=== PATIENT | male | born 1995 | race African-American/Black ===

== ENCOUNTER 2017-01-07 07:20 | Emergency (ER) | payer OTHER ==
--- NOTE | 2017-01-07 07:32 | PDOC ---
History of Present Illness <Jennifer Goyal - Last Filed: 01/07/17 07:32> <Eunice Quintanilla - Last Filed: 01/07/17 07:49> - General Chief Complaint: Pain Stated Complaint: RIGHT ANKLE PAIN Time Seen by Provider: 01/07/17 07:31 Past History - Past Medical History Diabetes: Yes Dialysis: Yes ( SAT) HTN: Yes - Psycho/Social/Smoking Cessation Hx Suicidal Ideation: No Smoking History: Never smoked Information on smoking cessation initiated: No <Jennifer Goyal - Last Filed: 01/07/17 07:32> <Eunice Quintanilla - Last Filed: 01/07/17 07:49> - Past Medical History Allergies/Adverse Reactions: Allergies Allergy/AdvReac Type Severity Reaction Status Date / Time No Known Allergies Allergy Verified 01/07/17 07:30 *Physical Exam - Vital Signs Last Vital Signs Temp Pulse Resp BP Pulse Ox 98.1 F 85 18 160/57 99 01/07/17 07:26 01/07/17 07:26 01/07/17 07:26 01/07/17 07:26 01/07/17 07:26 <Jennifer Goyal - Last Filed: 01/07/17 07:32> - Vital Signs Last Vital Signs Temp Pulse Resp BP Pulse Ox 98.1 F 85 18 160/57 99 01/07/17 07:26 01/07/17 07:26 01/07/17 07:26 01/07/17 07:26 01/07/17 07:26 <Eunice Quintanilla - Last Filed: 01/07/17 07:49>
[2017-01-07 07:45] VITALS: TEMP 98.1
--- NOTE | 2017-01-07 07:54 | PDOC ---
History of Present Illness - General History Source: Patient Exam Limitations: No Limitations - History of Present Illness Initial Comments: CHIEF COMPLAINT: 21 y/o afebrile male with no significant PMH c/o right ankle pain s/p sports injury yesterday. HISTORY OF PRESENT ILLNESS: The patient states he was playing basketball yesterday when he twisted his right ankle in an eversion fashion. He states he was not able to keep playing, has been limping and in pain ever since. He denies numbness/tingling, swelling, redness. The patient was given a percocet by his mother this morning for pain. Vital signs on arrival are within normal limits. REVIEW OF SYSTEMS: GENERAL/CONSTITUTIONAL: No fever/chills. No weakness. No weight change. MUSCULOSKELETAL: +right ankle pain. No neck or back pain. SKIN: No rash or easy bruising. NEUROLOGIC: No headache, vertigo, loss of consciousness, or loss of sensation. VITAL_SIGNS: within normal limits GENERAL_APPEARANCE: alert, cooperative, mild obvious discomfort with ambulation. The patient is ambulatory with limp MENTAL_STATUS: speech clear, oriented X 3, responds appropriately to questions. NEURO: motor intact and sensory intact in injured extremity. EXTREMITIES: 2+ dorsalis pedis pulse in right foot. Very minimal edema to right lateral malleolus with TTP in that area. No erythema, warmth, deformities , crepitus. Full flexion, extension, eversion and inversion of affected foot. SKIN: warm, dry, good color. <Becky Adames - Last Filed: 01/07/17 09:37> <Jennifer Goyal - Last Filed: 01/09/17 14:13> - General Chief Complaint: Pain Stated Complaint: RIGHT ANKLE PAIN Time Seen by Provider: 01/07/17 07:31 Past History - Past Medical History Diabetes: Yes Dialysis: Yes (Sat) HTN: Yes - Psycho/Social/Smoking Cessation Hx Suicidal Ideation: No Smoking History: Never smoked Information on smoking cessation initiated: No <Becky Adames - Last Filed: 01/07/17 09:37> <Jennifer Goyal - Last Filed: 01/09/17 14:13> - Past Medical History Allergies/Adverse Reactions: Allergies Allergy/AdvReac Type Severity Reaction Status Date / Time No Known Allergies Allergy Verified 01/07/17 07:30 Home Medications: Ambulatory Orders NK [No Known Home Medication] 01/07/17 *Physical Exam - Vital Signs Last Vital Signs Temp Pulse Resp BP Pulse Ox 98.1 F 56 L 18 93/65 99 01/07/17 07:26 01/07/17 07:26 01/07/17 07:26 01/07/17 07:26 01/07/17 07:26 <Becky Adames - Last Filed: 01/07/17 09:37> - Vital Signs Last Vital Signs Temp Pulse Resp BP Pulse Ox 98.1 F 84 18 107/68 100 01/07/17 07:26 01/07/17 10:01 01/07/17 10:01 01/07/17 10:01 01/07/17 10:01 <Jennifer Goyal - Last Filed: 01/09/17 14:13> Medical Decision Making - Medical Decision Making A/P: 21 y/o afebrile male with right ankle injury. Plan is as follows: 1. Right foot/ankle xray Right foot/ankle xray IMPRESSION: No acute bone abnormalities. Gave patient the results. Will apply ASMITA wrap to the affected ankle. Suggested he take OTC IBuprofen every 6 hours with food for pain, follow RICE instructions and f/u with his PCP within 1 week if no improvement in symptoms. The patient verbalizes understanding of all instructions, has no further questions and is awaiting discharge. <Becky Adames - Last Filed: 01/07/17 09:37> - Medical Decision Making 01/09/17 14:13 Pt presents to the ED after twisting his R ankle. Xrays are negative. Will discharge home. <Jennifer Goyal - Last Filed: 01/09/17 14:13> *DC/Admit/Observation/Transfer <Becky Adames - Last Filed: 01/07/17 09:37> <Jennifer Goyal - Last Filed: 01/09/17 14:13> Diagnosis at time of Disposition: Right ankle sprain Qualifiers: Encounter type: initial encounter Involved ligament of ankle: unspecified ligament Qualified Code(s): S93.401A - Sprain of unspecified ligament of right ankle, initial encounter - Discharge Dispostion Disposition: HOME Condition at time of disposition: Good - Referrals Referrals: Anthony Gill MD [Primary Care Provider] - - Patient Instructions Printed Discharge Instructions: DI for Ankle Sprain, How To Perform RICE (Rest , Ice, Compress, Elevate) Additional Instructions: Discharge Instructions: -The xray of your ankle was negative for any broken bones. -Follow RICE instructions to help with swelling -Take 600mg of over the counter Ibuprofen every 6 hours with food for pain -Use ASMITA bandage for comfort -Follow up with Dr. Gill if no improvement in symptoms within 1 week.
[2017-01-07 08:12] VITALS: BMI 22.4
[2017-01-07 10:02] VITALS: BP 107/68; PULSE 84
== END 2017-01-07 10:02 | disposition home or self-care (01) ==
LOC: JER 07:20
DX: S93.401A Sprain of unspecified ligament of right ankle, initial encounter (principal); X50.1XXA Overexertion from prolonged static or awkward postures, initial encounter; Y93.67 Activity, basketball; Y92.310 Basketball court as the place of occurrence of the external cause; Y99.8 Other external cause status; I12.0 Hypertensive chronic kidney disease with stage 5 chronic kidney disease or end stage renal disease; E11.22 Type 2 diabetes mellitus with diabetic chronic kidney disease; N18.6 End stage renal disease; N17.8 Other acute kidney failure; Z99.2 Dependence on renal dialysis
CPT/HCPCS: 73610-TC-RT; 73630-TC-RT; 99282-25